=== PATIENT | female | born 1965 | race Caucasian/White ===

== ENCOUNTER 2016-12-22 07:58 | Emergency (ER) | payer OTHER ==
[2016-12-22 08:35] VITALS: BP 144/98
--- NOTE | 2016-12-22 08:57 | UC ---
Respiratory Complaint HPI - HPI Summary HPI Summary: 51 yo female with a hx of RA presents with a 2-3 day hx of cough/runny nose/ nasal congestion/post nasal drip and sore throat no f/c facial pressure and pain - History of Current Complaint Chief Complaint: UCRespiratory Stated Complaint: THROAT,EARS Time Seen by Provider: 12/22/16 08:46 Hx Obtained From: Patient Hx Last Menstrual Period: n/a Onset/Duration: Gradual Onset Timing: Constant Severity Initially: Mild Severity Currently: Moderate Pain Intensity: 4 Pain Scale Used: 0-10 Numeric Character: Cough: Nonproductive Aggravating Factors: Nothing Alleviating Factors: Nothing Associated Signs And Symptoms: Positive: URI, Nasal Congestion, Hoarseness, Sinus Discomfort - Allergies/Home Medications Allergies/Adverse Reactions: Allergies Allergy/AdvReac Type Severity Reaction Status Date / Time Penicillins [PCN] AdvReac See Comment Verified 12/22/16 08:24 PMH/Surg Hx/FS Hx/Imm Hx Previously Healthy: Yes - RA Cardiovascular History Of: Reports: Hypertension - Surgical History Surgical History: Yes Surgery Procedure, Year, and Place: Partial Hysterectomy 2010 - Family History Known Family History: Positive: Cardiac Disease - rheumatic heart disease, Respiratory Disease - COPD - Social History Alcohol Use: Occasionally Substance Use Type: None Smoking Status (MU): Former Smoker Type: Cigarettes Amount Used/How Often: 2 PPD Length of Time of Smoking/Using Tobacco: 32 Years Have You Smoked in the Last Year: No When Did the Patient Quit Smoking/Using Tobacco: 2009 - Immunization History Most Recent Influenza Vaccination: September 2015 Review of Systems Constitutional: Negative Skin: Negative Eyes: Negative ENT: Sore Throat, Ear Ache, Nasal Discharge Respiratory: Cough Cardiovascular: Negative Gastrointestinal: Negative Genitourinary: Negative Motor: Negative Neurovascular: Negative Musculoskeletal: Arthralgia - chronic Neurological: Negative Psychological: Negative All Other Systems Reviewed And Are Negative: Yes Physical Exam Triage Information Reviewed: Yes Appearance: Well-Appearing, No Pain Distress, Well-Nourished Vital Signs: Initial Vital Signs Temp 98.3 F 12/22/16 08:16 Pulse 74 12/22/16 08:16 Resp 20 12/22/16 08:16 BP 144/98 12/22/16 08:16 Pulse Ox 98 12/22/16 08:16 Eyes: Positive: Conjunctiva Clear ENT: Positive: Hearing grossly normal, Nasal congestion, Nasal drainage, Other: - bilateral max sinus tenderness. Negative: Pharyngeal erythema, TMs normal, Tonsillar exudate, Trismus Neck: Positive: Supple, Nontender Respiratory: Positive: Lungs clear, Normal breath sounds, No respiratory distress Cardiovascular: Positive: RRR, No Murmur Musculoskeletal: Positive: ROM Intact, No Edema Neurological: Positive: Alert Psychological Exam: Normal Skin Exam: Normal UC Diagnostic Evaluation - Laboratory O2 Sat by Pulse Oximetry: 98 - normal/not hypoxic Respiratory Course/Dx - Differential Dx/Diagnosis Provider Diagnoses: acute sinusitis Discharge - Discharge Plan Condition: Stable Disposition: HOME Prescriptions: Azithromycin TAB* [Zithromax TAB*] 250 mg PO DAILY #6 tab Patient Education Materials: Sinusitis (ED) Forms: *Work Release Referrals: Bhavna Rich MD [Primary Care Provider] - 1 Week (if not better) Additional Instructions: use your flonase recheck for new or worsening symptoms
== END 2016-12-22 09:02 | disposition home or self-care (01) ==
LOC: UCCORT 07:58
DX: J01.90 Acute sinusitis, unspecified (principal); Z87.891 Personal history of nicotine dependence; Z88.0 Allergy status to penicillin
CPT/HCPCS: 99212; G0463